=== PATIENT | female | born 1970 | race Caucasian/White ===

== ENCOUNTER → 2016-12-31 | Outpatient (CLI) | payer OTHER ==
[~2016-12-31] MED LIST: ACTOS30 MG PO; AUGMENTIN TAB875 MG PO; B-COMPLEX WIT400 MCG PO; BENTYL10 MG PO; DULOXETINE HCL60 MG PO; GLUCOPHAGE 500500 MG PO; HUMIRA10 MG/0.2 SC; INVOKANA100 MG PO; JANUVIA100 MG PO; LIORESAL TAB 1010 MG PO; LOVASTATIN20 MG PO; METHOTREXATE2.5 MG PO; MOBIC15 MG PO; MUCINEX600 MG PO; NEOMYCIN-POLYMY10 M1 OT; NEURONTIN 400400 MG PO; OMNICEF 300 MG300 MG PO; OXYCODONE-ACET1 EACH PO; SINGULAIR10 MG PO; VITAMIN D50000 UNIT PO; ZESTRIL20 MG PO
== END ==
LOC: EXRD 13:24
DX: M54.16 Radiculopathy, lumbar region (principal); M54.5 Low back pain; M62.838 Other muscle spasm; M25.551 Pain in right hip; Z98.1 Arthrodesis status; M47.896 Other spondylosis, lumbar region
CPT/HCPCS: 72100; 73502